=== PATIENT | male | born 1995 | race Caucasian/White ===

== ENCOUNTER 2022-09-03 09:29 | Emergency (ER) | payer OTHER, SELFPAY ==
[2022-09-03 09:36] VITALS: BP 135/74; PULSE 107; RESP 16; TEMP 37.4; O2SAT 100
--- NOTE | 2022-09-03 09:38 | ED.NAVMDI ---
HPI - Nausea/Vomiting/Diarrhea General Chief complaint: Nausea/Vomiting/Diarrhea Stated complaint: poss food poison Time Seen by Provider: 09/03/22 09:38 Source: patient and RN notes reviewed History of Present Illness HPI Narrative: Patient is a 27-year-old male who presents to urgent care with complaints of nausea, vomiting and diarrhea. Patient states he ate [place] last night and woke up at 3:00 a.m. with vomiting and diarrhea. Patient has not vomited since then. States that he just feels very nauseated. Denies any abdominal pain. Denies any fever. Patient has taken DayQuil and Tylenol for headache. No other acute complaints. No acute distress noted. Patient aware of the plan of care. Some parts of this dictation were generated by voice recognition software and may contain typographical and/or grammatical inaccuracies. Related Data Allergies Allergy/AdvReac Type Severity Reaction Status Date / Time No Known Allergies Allergy Verified 09/03/22 09:57 Review of Systems Review of Systems: CONSTITUTIONAL: Denies fever, chills, or sweats. EYES: Denies visual changes, redness, or discharge. ENT: Denies rhinorrhea, congestion, sore throat, or otalgia. CARDIOVASCULAR: Denies chest pain, palpitations, or edema. RESPIRATORY: Denies cough or dyspnea. GASTROINTESTINAL: Reports of nausea, vomiting and diarrhea without abdominal pain GENITOURINARY: Denies dysuria or hematuria. SKIN: Denies rash or itching. MUSCULOSKELETAL: Denies back pain, joint pain, or myalgia. NEUROLOGIC: Denies headache, numbness, or weakness. All other systems reviewed are negative, except as documented in HPI. PMFSH Comments At the time of my signature, I reviewed and agree with the nursing past medical, surgical, social, and family history. There is no relevant family history pertinent to the patient complaint. Exam Narrative: GENERAL: This is a well-nourished, well-developed patient, in no apparent distress. HEAD: normocephalic, atraumatic. EYES: PERRL. Sclera clear/white. Vision is grossly intact. EARS: External ears normal NOSE: External nose normal with no obvious nasal discharge, nares without redness, no rhinorrhea. THROAT: Mucous membranes moist NECK: Neck supple GASTROINTESTINAL: Abdomen soft, non-tender, nondistended. Bowel sounds are hypoactive. SKIN: warm, intact with no suspicious lesions or rash, good texture and turgor. NEURO: awake, alert, and oriented to person, place and time. There were no obvious focal neurologic abnormalities. EXTREMITIES: No clubbing, cyanosis, or edema. Course Course Level of Care: Express Care Visit Vital Signs Vital signs: Vital Signs Temperature 99.4 F 09/03/22 09:36 Pulse Rate 107 H 09/03/22 09:36 Respiratory Rate 16 09/03/22 09:36 Blood Pressure 135/74 09/03/22 09:36 Pulse Oximetry 100 09/03/22 09:36 Oxygen Delivery Room Air 09/03/22 09:36 Temperature 99.4 F 09/03/22 09:36 Pulse Rate 107 H 09/03/22 09:36 Respiratory Rate 16 09/03/22 09:36 Blood Pressure 135/74 09/03/22 09:36 Pulse Oximetry 100 09/03/22 09:36 Oxygen Delivery Room Air 09/03/22 09:36 Reviewed MDM - Nausea/Vomiting/Diarrhea MDM Narrative Medical decision making narrative: Advised patient to use been nausea medication as needed. Use Pepto-Bismol [id number] for upset stomach. Avoid any fried, greasy or fatty foods until symptoms are resolved. Symptoms may last approximately 3 days. If he develops any increase in symptoms associated persistent vomiting, fever, abdominal pain-go to the emergency room. Increase water intake. Follow-up with your PCP within 2-5 days or for worsening symptoms or failure to improve. Differential Diagnosis Differential diagnosis: Likely traveler's diarrhea, food poisoning, gastroenteritis, clostridium difficile infection and drug-induced nausea and vomiting Discharge Plan Discharge Clinical Impression: Gastroenteritis Patient Disposition: Home, Self-Ca
== END 2022-09-03 10:26 | disposition home or self-care (01) ==
PROVIDERS: Emergency Provider Nurse Practitioner Family
DX: K52.9 Noninfective gastroenteritis and colitis, unspecified (principal)
CPT/HCPCS: 99213; G0463